=== PATIENT | female | born 1980 | race Caucasian/White ===

== ENCOUNTER → 2018-06-26 | Outpatient (CLI) | payer OTHER ==
--- NOTE | 2018-06-26 11:05 | MM ---
Reason for exam: screening (asymptomatic). Baseline mammogram. History: Family history of breast cancer in maternal aunt at age 54. Took hormonal contraceptives for 7 years. Physical Findings: Nurse did not find any significant physical abnormalities on exam. MG Screening Mammo w CAD Bilateral CC and MLO view(s) were taken. XCCL view(s) were taken of the left breast. The breast tissue is heterogeneously dense. This may lower the sensitivity of mammography. Focal asymmetry outer right CC posterior third position. These results were verbally communicated with the patient and result sheet given to the patient on 06/26/18. ASSESSMENT: Incomplete: need additional imaging evaluation, BI-RAD 0 RECOMMENDATION: Special view mammogram of the right breast.
--- NOTE | 2018-06-26 11:06 | MM ---
Reason for exam: additional evaluation requested from abnormal screening. History: Family history of breast cancer in maternal aunt at age 54. Took hormonal contraceptives for 7 years. Physical Findings: Breast exam preformed at baseline screening. MG Work Up Mamm w CAD RT Spot compression CC and LM view(s) were taken of the right breast. The breast tissue is heterogeneously dense. This may lower the sensitivity of mammography. Density is resolved. These results were verbally communicated with the patient and result sheet given to the patient on 06/26/18. ASSESSMENT: Negative, BI-RAD 1 RECOMMENDATION: Return to routine screening mammogram schedule for both breasts.
== END ==
LOC: RADMAMWWP 09:53
PROVIDERS: ATTEND Family Medicine
DX: Z12.31 Encounter for screening mammogram for malignant neoplasm of breast (principal); R92.8 Other abnormal and inconclusive findings on diagnostic imaging of breast
CPT/HCPCS: 77065; 77067

== ENCOUNTER 2019-03-14 23:11 | Emergency (ER) | payer OTHER ==
[2019-03-14] MEDS ORDERED: FAMOTIDINE 20 MG/2 ML VIAL IV STA (23:20)
[2019-03-14] MEDS ORDERED: methylPREDNISolone SOD SUCCI 125 MG/2 ML VIAL IV STA (23:20)
[2019-03-14 23:24] VITALS: RESP 18
--- NOTE | 2019-03-14 23:25 | ED ---
Allergic Reaction HPI - General Chief complaint: Allergic Reaction Stated complaint: Allergic Reaction Time Seen by Provider: 03/14/19 23:20 - History of Present Illness Initial Comments: 39-year-old female presents emergency department for evaluation of ALLERGIC reaction possibly to pumpkin seeds. Patient states that 7:30 she ate pumpkin seeds. 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 Patient states she went to bed shortly after and woke up to facial and tongue swelling and feeling as though she cannot breathe. Patient states that she thought the tongue swelling in throat sensation was getting worse since 11 PM she did take 50 mg of Benadryl 30 minutes prior at 10:30 PM. Patient denies any known ALLERGIES she denies any medications that she takes daily or or new medications. Patient denies any ingestion of peanuts or seafood. Patient denies any specific exposures that she could think of that would cause his aside from the ingestion of pumpkin seeds. Patient states the swelling does not appear to be getting worse she states the sensation of throat compression is decreasing. Remaining review of systems negative upon arrival patient is tolerating oral secretions. No signs of respiratory distress the tripoding. - Related Data Previous Rx's Medication Instructions Recorded EPINEPHrine (Auto Inject) [Epipen] 0.3 mg IM ONCE PRN 30 Days #1 pen 03/15/19 predniSONE 50 mg PO DAILY 4 Days #4 tab 03/15/19 Allergies Allergy/AdvReac Type Severity Reaction Status Date / Time nut - unspecified Allergy Swelling Verified 03/14/19 23:25 Penicillins Allergy Swelling Verified 03/14/19 23:25 Review of Systems ROS Statement: Those systems with pertinent positive or pertinent negative responses have been documented in the HPI. ROS Other: All systems not noted in ROS Statement are negative. General Exam - General Exam Comments Initial Comments: General: The patient is awake and alert, in no distress, and does not appear acutely ill. Eye: Pupils are equal, round and reactive to light, extra-ocular movements are intact. No nystagmus. There is normal conjunctiva bilaterally. No signs of icterus. Ears, nose, mouth and throat: There are moist mucous membranes and no oral lesions. Patient is swelling of the right side of the tongue slight swelling of the upper lip. No tripoding no drooling tolerating oral secretions Neck: The neck is supple, there is no tenderness or JVD. Cardiovascular: There is a regular rate and rhythm. No murmur, rub or gallop is appreciated. Respiratory: Lungs are clear to auscultation, respirations are non-labored, breath sounds are equal. No wheezes, stridor, rales, or rhonchi. Musculoskeletal: Normal ROM, no tenderness. Strength 5/5. Sensation intact. Radial pulses equal bilaterally 2+. Neurological: A&O x 3. CN II-XII intact grossly, There are no obvious motor or sensory deficits. Coordination appears grossly intact. Speech is normal. Skin: Skin is warm and dry and no rashes or lesions are noted. Psychiatric: Cooperative, appropriate mood & affect, normal judgment. Course Vital Signs 03/14/19 03/14/19 03/15/19 23:21 23:45 01:11 Temperature 98.0 F 97.9 F Pulse Rate 84 82 Respiratory 18 18 18 Rate Blood Pressure 135/91 142/78 O2 Sat by Pulse 99 100 Oximetry Medical Decision Making - Medical Decision Making 39-year-old female presenting to the emergency department for evaluation of allergic reaction to pumpkin seeds. Tongue swelling patient states that has been improving since she took Benadryl patient given Solu-Medrol and IV Pepcid. Patient monitored emergency department. Symptoms continue to resolve. Patient states she is ready to go home. Patient be discharged with oral prednisone. [employer] Wafer follow-up patient was advised not to eat pumpkin seeds. Return parameters were discussed. Patient was educated and provided prescription for EpiPen. Discussed case attempted provider patient is discharged appearing well Disposition Clinical Impression: Allergic reaction, Tongue swelling Disposition: HOME SELF-CARE Condition: Good Instructions (If sedation given, give patient instructions): Food Allergy (ED), Anaphylaxis (ED) Additional Instructions: Please use medication as discussed. Please follow-up with family doctor in the next 2 days, I recommend evaluation by an company driver. Please return to emergency room if the symptoms increase or worsen or for any other concerns. Prescriptions: EPINEPHrine (Auto Inject) [Epipen] 0.3 mg IM ONCE PRN 30 Days #1 pen PRN Reason: Anaphylaxis predniSONE 50 mg PO DAILY 4 Days #4 tab Is patient prescribed a controlled substance at d/c from ED?: No Referrals: Ahmet Ragland Jr, [Primary Care Provider] - 1-2 days Emmanuelle Bermudez MD [STAFF PHYSICIAN] - 1-2 days Zoe Currie MD [STAFF PHYSICIAN] - 1-2 days Time of Disposition: 01:04
[2019-03-15 01:12] VITALS: BP 142/78; PULSE 82; TEMP 97.9
== END 2019-03-15 01:12 | disposition home or self-care (01) ==
LOC: EC 23:11
DX: T78.40XA Allergy, unspecified, initial encounter (principal); R22.0 Localized swelling, mass and lump, head; Z88.0 Allergy status to penicillin; Z91.018 Allergy to other foods
CPT/HCPCS: 99284; 96374; 96375; J2930

== ENCOUNTER 2019-09-27 00:57 | Emergency (ER) | payer OTHER ==
[2019-09-27 01:04] VITALS: BP 125/88; PULSE 93; RESP 18; TEMP 98
--- NOTE | 2019-09-27 01:29 | ED ---
Extremity Problem HPI - General Chief complaint: Extremity Problem,Nontraumatic Stated complaint: Rt Knee Pain Time Seen by Provider: 09/27/19 01:07 Source: patient Mode of arrival: ambulatory Limitations: no limitations - History of Present Illness Initial comments: This patient is a 39-year-old woman with 2 complaints. She does have some mild knee pain which had come on following moving some furniture. She is able ambulate. The pain is aching and mild. Worse with walking, and better with resting. Her main complaint however is of a rash to the groin area. She describes small red bumps and is concerned because her was a family member who had been staying with her that was found to have possible scabies versus bedbugs. Patient denies fever or chills. She states that the rash does have fair amount of pruritus. No other symptoms. MD Complaint: joint pain -: days(s) Location: right, knee -: Yes arthralgia Quality: aching Consistency: constant Improves with: immobilization Worsens with: walking - Related Data Previous Rx's Medication Instructions Recorded EPINEPHrine (Auto Inject) [Epipen] 0.3 mg IM ONCE PRN 30 Days #1 pen 03/15/19 predniSONE 50 mg PO DAILY 4 Days #4 tab 03/15/19 Permethrin 5% Cream [Elimite] 1 applic TOPICAL ONCE #1 tube 09/27/19 Permethrin 5% Cream [Elimite] 1 applic TOPICAL ONCE #1 tube 09/27/19 Allergies Allergy/AdvReac Type Severity Reaction Status Date / Time nut - unspecified Allergy Swelling Verified 09/27/19 01:04 Penicillins Allergy Swelling Verified 03/14/19 23:25 Review of Systems ROS Statement: Those systems with pertinent positive or pertinent negative responses have been documented in the HPI. ROS Other: All systems not noted in ROS Statement are negative. Constitutional: Denies: fever, chills Respiratory: Denies: cough, dyspnea Cardiovascular: Denies: chest pain Gastrointestinal: Denies: abdominal pain Genitourinary: Denies: dysuria, frequency, hematuria Musculoskeletal: Reports: as per HPI, arthralgia Skin: Reports: as per HPI, rash Neurological: Denies: headache Past Medical History Past Medical History: Asthma Additional Past Medical History / Comment(s): anemia History of Any Multi-Drug Resistant Organisms: None Reported Past Surgical History: Appendectomy Past Psychological History: No Psychological Hx Reported Smoking Status: Never smoker Past Alcohol Use History: None Reported Past Drug Use History: None Reported General Exam Limitations: no limitations General appearance: alert, in no apparent distress Head exam: Present: atraumatic, normocephalic Eye exam: Present: normal appearance. Absent: scleral icterus, conjunctival injection Extremities exam: Present: normal inspection, full ROM, normal capillary refill, other (Patient's knee does not have effusion. No real tenderness. Ligaments show no laxity on exam.). Absent: tenderness, pedal edema, calf tenderness Skin exam: Present: warm, dry, intact, normal color, rash (Patient does have mild dermatitis to the groin in the lower distribution.) Course Vital Signs 09/27/19 00:59 Temperature 98 F Pulse Rate 93 Respiratory 18 Rate Blood Pressure 125/88 O2 Sat by Pulse 100 Oximetry Medical Decision Making - Medical Decision Making Given the patient's possible exposure will prescribe Elimite. Also discussed appropriate further care and follow-up are related to the mild knee injury Disposition Clinical Impression: Knee sprain, Scabies exposure Disposition: HOME SELF-CARE Condition: Good Instructions (If sedation given, give patient instructions): Knee Sprain (ED), Scabies (ED) Prescriptions: Permethrin 5% Cream [Elimite] 1 applic TOPICAL ONCE #1 tube Permethrin 5% Cream [Elimite] 1 applic TOPICAL ONCE #1 tube Is patient prescribed a controlled substance at d/c from ED?: No Referrals: Suraj Flynn MD [Primary Care Provider] - 1-2 days
== END 2019-09-27 01:50 | disposition home or self-care (01) ==
LOC: EC 00:57
DX: S83.91XA Sprain of unspecified site of right knee, initial encounter (principal); Z20.7 Contact with and (suspected) exposure to pediculosis, acariasis and other infestations; Z88.0 Allergy status to penicillin; Z91.018 Allergy to other foods; X58.XXXA Exposure to other specified factors, initial encounter
CPT/HCPCS: 99283

== ENCOUNTER 2020-01-11 03:05 | Emergency (ER) | payer OTHER ==
[2020-01-11 03:13] VITALS: TEMP 98.3
--- NOTE | 2020-01-11 03:37 | ED ---
Chest Pain HPI - General Chief Complaint: Chest Pain Stated Complaint: Chest pain Time Seen by Provider: 01/11/20 03:11 Source: patient, family Mode of arrival: ambulatory Limitations: no limitations - History of Present Illness Initial Comments: This patient is a 39-year-old woman who presents to be evaluated for substernal chest pain. She states that she had noticed it when she woke up to use the bathroom. She describes as burning in character. She does note that it radiates to the neck and towards the left shoulder. She rates it moderate 10 c ity. There have been no worsening or relieving factors. MD Complaint: chest pain Onset/Timin -: hour(s) Onset: during rest Pain Location: substernal Pain Radiation: LUE, neck Severity: moderate Quality: other (Burning) Consistency: constant Improves With: nothing Worsens With: nothing - Related Data Previous Rx's Medication Instructions Recorded EPINEPHrine (Auto Inject) [Epipen] 0.3 mg IM ONCE PRN 30 Days #1 pen 03/15/19 predniSONE 50 mg PO DAILY 4 Days #4 tab 03/15/19 Permethrin 5% Cream [Elimite] 1 applic TOPICAL ONCE #1 tube 09/27/19 Permethrin 5% Cream [Elimite] 1 applic TOPICAL ONCE #1 tube 09/27/19 Allergies Allergy/AdvReac Type Severity Reaction Status Date / Time nut - unspecified Allergy Swelling Verified 01/11/20 03:13 Penicillins Allergy Swelling Verified 01/11/20 03:13 Review of Systems ROS Statement: Those systems with pertinent positive or pertinent negative responses have been documented in the HPI. ROS Other: All systems not noted in ROS Statement are negative. Constitutional: Denies: fever, chills Respiratory: Denies: cough, dyspnea Cardiovascular: Reports: chest pain. Denies: palpitations, orthopnea, edema, syncope Gastrointestinal: Denies: abdominal pain, nausea, vomiting, diarrhea Genitourinary: Denies: dysuria, hematuria Musculoskeletal: Denies: back pain Skin: Denies: rash Neurological: Denies: headache, weakness, numbness EKG Findings - EKG Results: EKG: WNL, sinus rhythm (Rate 85 bpm), normal axis, normal QRS, normal ST/T, no acute changes Past Medical History Past Medical History: Asthma Additional Past Medical History / Comment(s): anemia History of Any Multi-Drug Resistant Organisms: None Reported Past Surgical History: Appendectomy Past Psychological History: No Psychological Hx Reported Smoking Status: Never smoker Past Alcohol Use History: None Reported Past Drug Use History: None Reported General Exam Limitations: no limitations General appearance: alert, in no apparent distress Head exam: Present: atraumatic, normocephalic Eye exam: Present: normal appearance Respiratory exam: Present: normal lung sounds bilaterally. Absent: respiratory distress, wheezes, rales, rhonchi, stridor Cardiovascular Exam: Present: regular rate, normal rhythm, normal heart sounds. Absent: systolic murmur, diastolic murmur, rubs, gallop GI/Abdominal exam: Present: soft. Absent: distended, tenderness, guarding, rebound, rigid, mass Extremities exam: Present: normal inspection, normal capillary refill. Absent: pedal edema, calf tenderness Back exam: Present: normal inspection. Absent: CVA tenderness (R), CVA tenderness (L) Neurological exam: Present: alert Skin exam: Present: warm, dry, intact, normal color. Absent: rash Course Vital Signs 01/11/20 01/11/20 03:08 03:36 Temperature 98.3 F Pulse Rate 92 87 Respiratory 20 Rate Blood Pressure 144/91 124/86 O2 Sat by Pulse 100 Oximetry Disposition Clinical Impression: Chest pain Disposition: HOME SELF-CARE Condition: Good Instructions (If sedation given, give patient instructions): Chest Pain (ED) Is patient prescribed a controlled substance at d/c from ED?: No Referrals: Suraj Flynn MD [Primary Care Provider] - 1-2 days Forrest Franco MD [STAFF PHYSICIAN] - 1-2 days
[2020-01-11 03:42] LABS: Anisocytosis Slight; Basophils # (A) 0.1 k/uL (0-0.2); Basophils % (A) 1 %; Eosinophils # (A) 0.2 k/uL (0-0.7); Eosinophils % (A) 2 %; HCT 35.1 % (34.0-46.0); HGB 10.3 gm/dL (11.4-16.0); Hypochromasia Marked; Lymphocytes # (A) 1.8 k/uL (1.0-4.8); Lymphocytes % (A) 21 %; MCH 20.2 pg (25.0-35.0); MCHC 29.2 g/dL (31.0-37.0); MCV 69.2 fL (80.0-100.0); Mean Platelet Volume 6.5; Microcytosis Marked; Monocytes # (A) 0.5 k/uL (0-1.0); Monocytes % (A) 6 %; Neutrophils # (A) 5.7 k/uL (1.3-7.7); Neutrophils % (A) 68 %; Platelet Count 513 k/uL (150-450); RBC 5.08 m/uL (3.80-5.40); RDW 16.8 % (11.5-15.5); WBC 8.5 k/uL (3.8-10.6)
[2020-01-11 03:51] LABS: ALT 31 U/L (4-34); AST 28 U/L (14-36); African American GFR (CKD) >90 (>60 ml/min/1.73 sqM); Albumin 3.9 g/dL (3.5-5.0); Alkaline Phosphatase 94 U/L (38-126); Amylase 62 U/L (30-110); Anion Gap 8 mmol/L; Blood Urea Nitrogen 8 mg/dL (7-17); Calcium 9.1 mg/dL (8.4-10.2); Carbon Dioxide 23 mmol/L (22-30); Chloride 105 mmol/L (98-107); Glucose 102 mg/dL (74-99); Lipase 222 U/L (23-300); Magnesium 2.1 mg/dL (1.6-2.3); Non-African American GFR(CKD) >90 (>60 ml/min/1.73 sqM); Potassium 4.1 mmol/L (3.5-5.1); Sodium 136 mmol/L (137-145); Total Bilirubin 0.4 mg/dL (0.2-1.3); Total Protein 6.7 g/dL (6.3-8.2)
[2020-01-11 03:56] LABS: D-Dimer 0.45 mg/L FEU (<0.60); INR 0.9 (<1.2); Partial Thromboplastin Time 24.1 sec (22.0-30.0); Prothrombin Time 9.4 sec (9.0-12.0)
--- NOTE | 2020-01-11 04:03 | XR ---
EXAMINATION TYPE: XR chest 2V DATE OF EXAM: 01/11/2020 COMPARISON: 11/12/2012 HISTORY: Chest pain TECHNIQUE: 2 views FINDINGS: Heart and mediastinum are normal. Lungs are clear. Diaphragm is normal. Bony thorax appears normal. T here are chest leads. Pulmonary vascularity is normal. IMPRESSION: Normal chest. There is clearing of the right upper lobe pneumonia compared to old exam.
[2020-01-11 04:50] VITALS: BP 131/95; PULSE 86; RESP 16
== END 2020-01-11 04:47 | disposition home or self-care (01) ==
LOC: EC 03:05
DX: R07.2 Precordial pain (principal); M54.2 Cervicalgia; M25.512 Pain in left shoulder; Z88.0 Allergy status to penicillin; Z91.018 Allergy to other foods
CPT/HCPCS: 36415; 71046; 80053; 82150; 83690; 83735; 84484; 85025; 85379; 85610; 85730; 93005; 99285

== ENCOUNTER → 2020-08-04 | Outpatient (CLI) | payer OTHER ==
--- NOTE | 2020-08-05 01:45 | MR ---
EXAMINATION TYPE: MR knee RT wo con DATE OF EXAM: 08/04/2020 COMPARISON: None HISTORY: Right knee pain for 1 year. Multiplanar multiecho imaging of the right knee was performed without contrast. There is mild knee joint effusion. The anterior and posterior cruciate ligaments are intact. The ray ateral ligaments are intact. There is no evidence of a fracture. I see no bony destructive process. The lateral meniscus is intact. There is long horizontal tear of the medial meniscus involving university manager ior horn. There is subcutaneous edema over the tibial tubercle. IMPRESSION: Mild knee joint effusion. Long horizontal tear within the posterior horn of the medial meniscus. No e vidence of ligamentous tear. Subcutaneous edema anterior to the proximal tibia.
== END | disposition home or self-care (01) ==
LOC: RADMRIMAIN 16:02
PROVIDERS: ATTEND Orthopaedic Surgery
DX: S83.241A Other tear of medial meniscus, current injury, right knee, initial encounter (principal); M25.461 Effusion, right knee

== ENCOUNTER → 2020-09-04 | Outpatient (CLI) | payer OTHER ==
[2020-09-04 12:24] LABS: Basophils # (A) 0.1 k/uL (0-0.2); Basophils % (A) 1 %; Eosinophils # (A) 0.1 k/uL (0-0.7); Eosinophils % (A) 2 %; HCT 43.6 % (34.0-46.0); HGB 13.6 gm/dL (11.4-16.0); Lymphocytes # (A) 1.4 k/uL (1.0-4.8); Lymphocytes % (A) 18 %; MCH 26.6 pg (25.0-35.0); MCHC 31.1 g/dL (31.0-37.0); MCV 85.5 fL (80.0-100.0); Mean Platelet Volume 7.1; Monocytes # (A) 0.4 k/uL (0-1.0); Monocytes % (A) 5 %; Neutrophils # (A) 5.7 k/uL (1.3-7.7); Neutrophils % (A) 74 %; Platelet Count 385 k/uL (150-450); RDW 13.1 % (11.5-15.5); WBC 7.7 k/uL (3.8-10.6)
[2020-09-04 12:54] LABS: Potassium 4.7 mmol/L (3.5-5.1)
== END | disposition home or self-care (01) ==
LOC: LABPAT 10:31
PROVIDERS: ATTEND Orthopaedic Surgery
DX: Z01.818 Encounter for other preprocedural examination (principal); M23.91 Unspecified internal derangement of right knee
CPT/HCPCS: 36415; 80051; 85025

== ENCOUNTER → 2020-09-08 | Day surgery (SDC) | payer OTHER ==
[2020-09-04 15:58] VITALS: BMI 39.2
--- NOTE | 2020-09-07 09:18 | HP ---
HISTORY AND PHYSICAL CHIEF COMPLAINT: Right knee pain. HISTORY OF PRESENT ILLNESS: The patient is a 40-year-old female who presents with right knee pain for the past 12 months. She notes medial pain with stairs and kneeling. She also notes pain with twisting. She has intermittent giving way. She has tried medications in addition to home exercises without much relief. She notes daily pain that limits her. PAST MEDICAL HISTORY: Significant for anemia. PAST SURGICAL HISTORY: Significant for appendectomy. CURRENT MEDICATIONS: None. ALLERGIES: She has allergies to PENICILLIN. FAMILY HISTORY: Significant for cancer. SOCIAL HISTORY: Negative for current tobacco or alcohol use. REVIEW OF SYSTEMS: Sixteen-point review of systems otherwise reviewed and is noncontributory. PHYSICAL EXAMINATION: On examination, patient is approximately 5 feet 2 inches, 214 pounds of endomorphic habitus. HEENT exam is nonfocal. Neck is supple. She has painless passive motion of the right hip. Straight leg raise is negative. Active motion right knee -12 to 120 degrees of flexion. She has a mild effusion. She is tender about the medial joint line. Collaterals are stable, Reza is negative, Eliot's elicits medial pain. Her distal neurovascular exam appears intact in the right lower extremity. Weightbearing notch, lateral Merchant views of the right knee obtained in the office show mild medial compartment narrowing. MRI report right knee 08/04/2020 shows evidence of a posterior horn medial meniscal tear. IMPRESSION: Internal derangement right knee with symptomatic medial meniscal tear. RECOMMENDATIONS: I talked to the patient at length regarding her condition and treatment options. At this point, she remains quite symptomatic despite conservative measures to include activity modifications, anti-inflammatories, and home exercises. After thorough discussion, she opts to proceed with surgery. We will plan to proceed with arthroscopic evaluation with possible partial medial meniscectomy. We will likely perform that as an outpatient procedure. Risks and benefits were discussed at length in layman's terms. MMODL / IJN: [id number] /
[~2020-09-08] MED LIST: DEXAMETHASONE SOD PHOSPHATE 4 MG/ML 1 ML VIAL IV ONE; EPINEPHrine (PF) 1 ML in SODIUM CHLORIDE 0.9% IRRIGATIO 3,000 ML IRRIGATION ONE; HYDROcodone/APAP 5-325MG 1 EACH TAB ONE; HYDROcodone/APAP 5-325MG 1 EACH TAB PO ONE; KETOROLAC 15 MG/ML 1 ML VIAL ONE; LACTATED RINGERS 1,000 ML IV ONE; LACTATED RINGERS 1,000 ML IV SCH; LIDOCAINE 1% (10MG/ML) FOR IV START INTRADERMA PRN; LIDOCAINE 1% INJ 10MG/ML (20 ML MDV) ONE; MIDAZOLAM 2 MG/2 ML VIAL IV PRN; MIDAZOLAM 2 MG/2 ML VIAL ONE; ONDANSETRON 4 MG/2 ML VIAL IVP ONE; PROPOFOL 10 MG/ML 20 ML VIAL IV ONE; fentaNYL (PF) 50 MCG/ML 2 ML AMP ONE
--- NOTE | 2020-09-08 08:33 | P.OP ---
Date of Procedure: 09/08/20 Preoperative Diagnosis: Right knee internal derangement Postoperative Diagnosis: Right knee posterior medial meniscal tear Procedure(s) Performed: Right knee arthroscopic partial medial meniscectomy Anesthesia: JHONA Surgeon: Sudhir Espinoza Estimated Blood Loss (ml): 10 Pathology: none sent Condition: stable Disposition: PACU Indications for Procedure: The patient's a 40-year-old female presents with progressive/persistent right knee pain and mechanical symptoms despite conservative measures. A discussion the risks and benefits of operative intervention versus continued conservative measures was made with patient and she opted to proceed with surgery. Operative risks to include infection, neurovascular injury, development of blood clots, possible incomplete resolution of symptoms, possible worsening symptoms and need for subsequent procedures was discussed. Informed consent was obtained. Operative Findings: As below Description of Procedure: The patient was brought to the operating room, and after induction of general anesthesia examined the right knee. Collaterals were stable, Reza was negative, and posterior drawer was negative. The right lower extremity was prepped and draped in a normal fashion. A superior lateral portal was made through a 3 mm skin incision superior and lateral to the patella. This was used for outflow. A lateral portal was made through a 5 mm vertical skin incision la teral to the patella tendon above the joint line. Diagnostic arthroscopy was performed. On inspection of the medial compartment, and oblique tear involving the posterior horn medial meniscus in the white-red junction was noted. This was not amenable to repair.. This was debrided back to stable base with straight baskets and a motorized shaver. The remaining medial meniscus was stable and intact. On inspection of the notch, the anterior cruciate ligament appeared to be intact. On inspection of the lateral compartment, no significant meniscal or cartilage pathology was noted. On inspection of the patellofemoral articulation, there is chondral fibrillation however no loose chondral fragments. The gutters were clear debris. The knee was then thoroughly irrigated. The portals were closed with Steri-Strips. A sterile dressing was applied in addition to a compression stocking. The patient was awoken from general anesthesia and transferred to recovery room in good condition. Blood loss was estimated at 10 mL. No complications were incurred.
[2020-09-08] MEDS: HYDROmorphone 0.5 MG/0.5 ML SYRINGE IVP PRN ×4 (08:46→09:16)
[2020-09-08 08:58] VITALS: TEMP 98.2
[2020-09-08 09:08] VITALS: RESP 16
[2020-09-08 12:09] VITALS: BP 134/84; PULSE 78
== END | disposition home or self-care (01) ==
LOC: OR 06:49
PROVIDERS: ATTEND Orthopaedic Surgery
DX: S83.241A Other tear of medial meniscus, current injury, right knee, initial encounter (principal); E66.9 Obesity, unspecified; K21.9 Gastro-esophageal reflux disease without esophagitis; Z88.0 Allergy status to penicillin
CPT/HCPCS: 81025; 29881; J2250; J1100; J0690; J2405; J0171; J2001; J3010; J1885; J2704; J1170